=== PATIENT | female | born 1960 | race Caucasian/White ===

== ENCOUNTER → 2018-06-04 | Outpatient (CLI) | payer OTHER ==
[~2018-06-04] MED LIST: "\\\"MUSCLE RELAXER\\\"" PO; HYDR1TAB94 PO; XARELTO10 MG PO
[2018-06-09 14:10] LABS: HPV 16 Negative (Negative); HPV 18 Negative (Negative); HPV OTHER HR TYPES Negative (Negative)
== END ==
LOC: LAB 12:41 → LAB SHORT 12:41
PROVIDERS: Internal Medicine
DX: Z01.419 Encounter for gynecological examination (general) (routine) without abnormal findings (principal)
CPT/HCPCS: 87625; G0145

== ENCOUNTER 2020-12-20 12:57 | Emergency (ER) | payer OTHER ==
[~2020-12-20] VITALS: Ht 170.2 cm; Wt 65.8 kg
== END 2020-12-20 17:39 | disposition home or self-care (01) ==
LOC: ER 12:57
DX: S01.01XA Laceration without foreign body of scalp, initial encounter (principal); Z91.09 Other allergy status, other than to drugs and biological substances; Z88.5 Allergy status to narcotic agent; Z87.891 Personal history of nicotine dependence; W22.8XXA Striking against or struck by other objects, initial encounter
CPT/HCPCS: 12001; 70450; 99283-25; A9270

== ENCOUNTER 2022-03-30 09:48 | Emergency (ER) | payer OTHER ==
[~2022-03-30] VITALS: Ht 167.6 cm; Wt 59.9 kg
== END 2022-03-30 15:08 | disposition home or self-care (01) ==
LOC: ER 09:48
DX: I82.412 Acute embolism and thrombosis of left femoral vein (principal); I82.812 Embolism and thrombosis of superficial veins of left lower extremity; M79.81 Nontraumatic hematoma of soft tissue; R06.02 Shortness of breath; T37.8X5A Adverse effect of other specified systemic anti-infectives and antiparasitics, initial encounter
CPT/HCPCS: 72193; 76857; Q9967

== ENCOUNTER 2022-04-04 06:33 | Day surgery (SDC) | payer OTHER ==
[~2022-04-04] VITALS: Ht 167.6 cm; Wt 59.5 kg
[2022-04-04] MEDS ORDERED: ELIQUIS5 M2 PO (06:53)
--- NOTE | 2022-04-04 09:40 | NUR ---
PT TO RECOVERY ROOM POST PROCEDURE. PT DROWSY, BUT ANSWERING QUESTIONS APPROPRIATELY; DENIES PAIN POST PROCEDURE. MONITOR SR 70'S, B/P 163/104, AFEBRILE, SPO2 98% RA. L POPLITEAL SITE NO SWELLING/HEMATOMA, PURSE STING SUTURES IN PLACE, TEGADERM DRSG INTACT. PT'S SON AT BEDSIDE ATTENTIVE.
--- NOTE | 2022-04-04 10:15 | NUR ---
PT TOOK BREAKFAST WITHOUT ISSUE. DR DEAN INTO REVIEW RESULTS OF PROCEDURE.
--- NOTE | 2022-04-04 11:25 | NUR ---
PURSE STRING SUTURES REMOVED WITHOUT ISSUE, CLOTH DOT DRSG PLACED.
--- NOTE | 2022-04-04 11:35 | NUR ---
PT AMB TO BATHROOM, GAIT STEADY; SITE UNCHAGED.
--- NOTE | 2022-04-04 11:45 | NUR ---
PT DRESSED SELF WITHOUT ISSUE, SITE UNCHANGED; IV REMOVED-CANNULA INTACT.
--- NOTE | 2022-04-04 11:57 | NUR ---
PT AND SON RECEIVED DISCHARGE INSTRUCTIONS, MED LIST AND AFTER CARE INSTRUCTIONS; VERBALIZED GOOD UNDERSTANDING. PT LEFT FACILITY VIA W/C, CONDITION STABLE.
== END 2022-04-04 11:57 | disposition home or self-care (01) ==
LOC: MHTC 06:33
DX: I82.412 Acute embolism and thrombosis of left femoral vein (principal); I82.422 Acute embolism and thrombosis of left iliac vein; J45.909 Unspecified asthma, uncomplicated; Z87.891 Personal history of nicotine dependence; Z86.718 Personal history of other venous thrombosis and embolism; Z79.01 Long term (current) use of anticoagulants; Z88.6 Allergy status to analgesic agent; Z88.4 Allergy status to anesthetic agent; Z88.1 Allergy status to other antibiotic agents; Z91.038 Other insect allergy status; Z88.5 Allergy status to narcotic agent; Z88.0 Allergy status to penicillin; Z88.2 Allergy status to sulfonamides; Z88.8 Allergy status to other drugs, medicaments and biological substances; Z91.048 Other nonmedicinal substance allergy status
CPT/HCPCS: 37187; 37238; 37252; 75820; 75825; 76937; 99152; 99153; C1725; C1753; C1757; C1769; C1876; C1887; J1644; J2250; J3010; J7030; Q9967

== ENCOUNTER 2022-09-09 08:27 | Day surgery (SDC) | payer OTHER ==
[~2022-09-09] VITALS: Ht 167.6 cm; Wt 61.7 kg
[~2022-09-09 08:27] MED LIST changes: +ELIQUIS5 M2 PO
== END 2022-09-09 11:04 | disposition home or self-care (01) ==
LOC: ORSCSDS 08:27
PROVIDERS: Internal Medicine Gastroenterology
PROC: 0DBN8ZX Excision of Sigmoid Colon, Via Natural or Artificial Opening Endoscopic, Diagnostic (ICD-10-PCS; principal; 2022-09-09 09:45)
PROC: 0DBK8ZX Excision of Ascending Colon, Via Natural or Artificial Opening Endoscopic, Diagnostic (ICD-10-PCS; principal; 2022-09-09 09:45)
PROC: 0DBH8ZX Excision of Cecum, Via Natural or Artificial Opening Endoscopic, Diagnostic (ICD-10-PCS; principal; 2022-09-09 09:45)
DX: Z12.11 Encounter for screening for malignant neoplasm of colon (principal); Z86.010 Personal history of colon polyps; D12.0 Benign neoplasm of cecum; D12.2 Benign neoplasm of ascending colon; D12.5 Benign neoplasm of sigmoid colon; K57.30 Diverticulosis of large intestine without perforation or abscess without bleeding; I10 Essential (primary) hypertension; Z87.891 Personal history of nicotine dependence; Z86.718 Personal history of other venous thrombosis and embolism; Z79.01 Long term (current) use of anticoagulants
CPT/HCPCS: 88305; J2704; J7120

== ENCOUNTER 2024-12-15 07:00 | Emergency (ER) | payer OTHER ==
[~2024-12-15] VITALS: Ht 167.6 cm; Wt 56.7 kg
[~2024-12-15 07:00] MED LIST changes: +MOTION RELIEF25 M1 PO
[2024-12-15 08:06] VITALS: BP 163/106
== END 2024-12-15 09:30 | disposition home or self-care (01) ==
LOC: ER 07:00
DX: M79.10 Myalgia, unspecified site (principal); Z59.89 Other problems related to housing and economic circumstances
CPT/HCPCS: 93971; 99283-25

== ENCOUNTER 2025-04-07 06:56 | Day surgery (SDC) | payer OTHER ==
[~2025-04-07] VITALS: Ht 167.6 cm; Wt 57.9 kg
[2025-04-07] MEDS ORDERED: Clindamycin 900mg in D5W 50ML 0 ML IV ONE (07:23)
[2025-04-07] MEDS ORDERED: Clindamycin 600mg in D5W 50 ML IV ONE (07:25)
--- NOTE | 2025-04-07 07:29 | NUR ---
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 SHE SAID IT HAS BEEN ONGOING INFECTION FOR 3 YRS.
[2025-04-07] MEDS ORDERED: Midazolam HCl 1MG / ML 2ML Vial ONE (07:34)
[2025-04-07] MEDS ORDERED: FentaNYL Citrate 50 MCG/ML 2 ML Injection ONE (07:34)
[2025-04-07] MEDS ORDERED: Lidocaine HCl 2% 10 ML SDA INJ ONE (08:23)
[2025-04-07] MEDS ORDERED: Lidocaine HCl 2% 10 ML SDA ONE (08:24)
[2025-04-07] MEDS ORDERED: Dexamethasone Sod Phos 10 MG/ML 1ML VIAL ONE (08:26)
--- NOTE | 2025-04-07 08:26 | NUR ---
04/07/25 0826 Jana Gong PT HAS LIDOCAINE ALLERGY, PT STATES IT MAKES HER "JITTERY", PER PT OK TO GIVE HER LIDOCAINE 2% FOR PROCEDURE. DR WOOD & ROSIE ARE OK TO GIVE PT LIDOCAINE 2% ALSO.
--- NOTE | 2025-04-07 08:47 | NUR ---
04/07/25 0847 Kelsey Santos REPORT RECEIVED FROM ELE AND RN. PT ASLEEP WITH OA IN PLACE UPON ARRIVAL TO PACU. PT SUPINE, HOB FLAT. LEFT FINGERS PINK, WARM, DRY. CAP REFILL ON LEFT FINGERS <3 SECONDS. UNABLE TO ASSESS LEFT RADIAL PULSE DUE TO DRESSING.
--- NOTE | 2025-04-07 09:16 | NUR ---
04/07/25 0916 Kelsey Santos PT IN RECLINER WITH LEFT ARM ELEVATED ON PILLOW AND ICE PACK APPLIED. MDA NOTIFIED OF BP IN PACU, NO ORDERS RECEIVED AT THIS TIME. REPORT GIVEN TO CINTHYA ESPINO
[2025-04-07] MEDS ORDERED: HYDROcodone 5-APAP 325 TAB ONE (09:38)
[2025-04-07 12:38] VITALS: BP 145/92
[2025-04-07] MEDS ORDERED: Ondansetron HCl 2 MG / ML 2ML Vial ONE (13:30)
== END 2025-04-07 09:50 | disposition home or self-care (01) ==
LOC: ORSCSDS 06:56
PROVIDERS: Orthopaedic Surgery
PROC: 01N54ZZ Release Median Nerve, Percutaneous Endoscopic Approach (ICD-10-PCS; principal; 2025-04-07 08:15)
PROC: 01N40ZZ Release Ulnar Nerve, Open Approach (ICD-10-PCS; principal; 2025-04-07 08:15)
PROC: 0JBH0ZX Excision of Left Lower Arm Subcutaneous Tissue and Fascia, Open Approach, Diagnostic (ICD-10-PCS; principal; 2025-04-07 08:15)
DX: G56.22 Lesion of ulnar nerve, left upper limb (principal); G56.02 Carpal tunnel syndrome, left upper limb; I10 Essential (primary) hypertension; E11.9 Type 2 diabetes mellitus without complications; E03.9 Hypothyroidism, unspecified; Z86.718 Personal history of other venous thrombosis and embolism; Z79.01 Long term (current) use of anticoagulants; F41.9 Anxiety disorder, unspecified; F32.A Depression, unspecified; Z79.899 Other long term (current) drug therapy
CPT/HCPCS: 88304; 88313; A9270; J1100; J2003; J2250; J2405; J2704; J3010; J7120